=== PATIENT | male | born 1995 ===

== ENCOUNTER 2024-07-27 06:47 | Emergency (ER) | payer OTHER ==
[2024-07-27] MEDS ORDERED: Ketorolac Tromethamine 30 MG (1 mL) VIAL ONE (07:09)
[2024-07-27] MEDS ORDERED: Ondansetron PF 4 MG/2 ML Vial ONE (07:09)
[2024-07-27] MEDS ORDERED: fentaNYL 50 mcg/mL 1 mL Vial ONE (07:56)
[2024-07-27] MEDS ORDERED: Iopamidol-370 76% 500 ML MDV (1 ML CHARGE) ONE (14:43)
== END 2024-07-27 10:00 | disposition home or self-care (01) ==
LOC: ERS 06:47
DX: S32.018A Other fracture of first lumbar vertebra, initial encounter for closed fracture (principal); S32.028A Other fracture of second lumbar vertebra, initial encounter for closed fracture; V89.2XXA Person injured in unspecified motor-vehicle accident, traffic, initial encounter; Y93.89 Activity, other specified
CPT/HCPCS: 71260; 72100; 74177; 96374; 96375; G0390; J1885; J2405; J3010; Q9967